=== PATIENT | male | born 1940 | race Hispanic/Latino ===

== ENCOUNTER 2017-09-02 11:13 | Day surgery (SDC) | payer MEDICARE, MEDICAID ==
[2016-08-20 12:23] VITALS: BMI 34.3
[2017-09-02] MEDS ORDERED: Lidocaine Hydrochloride 5 ML INJ ONE (12:25)
[2017-09-02] MEDS ORDERED: Propofol 10 mg/ml Inj (20 ML) ONE (12:25)
--- NOTE | 2017-09-02 12:29 | CP.SDSHP ---
Same Day Surgery H & P - History Proposed Procedure: colonoscopy Pre-Op Diagnosis: h/o colon polyps - Allergies Allergies: Allergies No Known Allergies Allergy (Verified 09/02/17 11:53) - Physical Exam General Appearance: nl Vital Signs: Vital Signs 09/02/17 11:30 Temperature 98.6 F Pulse Rate 81 Respiratory 20 Rate Blood Pressure 134/61 O2 Sat by Pulse 97 Oximetry Mental Status: Alert & Oriented x3 Neuro: WNL Heart: WNL Lungs: WNL GI: WNL - {Optional Preform as Required} Abdomen: WNL - Impression Impression: h/o colon polyps Pt. Evaluated Today:Candidate for Anesthesia & Procedure: Yes - Date & Time Date: 09/02/17 Time: 12:28 Short Stay Discharge - Short Stay Discharge Admitting Diagnosis/Reason for Visit: HISTORY OF COLON POLYPS, CHRONIC CONSTIPATION, DIV Disposition: HOME/ ROUTINE Referrals: Main Viera MD [Primary Care Provider] -
[2017-09-02 13:11] VITALS: TEMP 97.1
[2017-09-02 14:42] VITALS: O2SAT 98
[2017-09-02 14:46] VITALS: BP 125/62; PULSE 77; RESP 15
== END 2017-09-02 14:00 | disposition home or self-care (01) ==
LOC: C.ENDO 11:13
PROVIDERS: ATTEND Internal Medicine
DX: K57.30 Diverticulosis of large intestine without perforation or abscess without bleeding (principal); K59.09 Other constipation; D12.0 Benign neoplasm of cecum; D12.3 Benign neoplasm of transverse colon; K64.8 Other hemorrhoids; K62.1 Rectal polyp
CPT/HCPCS: 45384; 82948; 88305; J2704